=== PATIENT | male | born 1960 | race Caucasian/White ===

== ENCOUNTER → 2018-12-14 | Outpatient (CLI) | payer BC ==
[2016-02-27 07:35] VITALS: BP 135/50
[~2018-12-14] MED LIST: ACET500T68 PO; CONTRAST GIVEN. MC PRN; FENO134C PO; IOHEXOL 350 MG/ML 100 ML VIAL. IV ONE; IOHEXOL 350 MG/ML 100 ML VIAL. ONE; LOSA1TAB22 PO; METO-239 PO; OMEG300C PO; POTA10TA12 PO; SIMV40TA3 PO; TADA5TAB PO; TAMS0.4C2 PO; UBIQ75CA PO; WARF7.5T45 PO
--- NOTE | 2018-12-14 09:42 | RAD ---
PQRS Compliance Statement: One or more of the following individualized dose reduction techniques were utilized for this examination: 1. Automated exposure control 2. Adjustment of the mA and/or kV according to patient size 3. Use of iterative reconstruction technique CT ANGIO ABD ILEO/FEMOR RUNOFF Clinical Indication: Peripheral tear of disease, bilateral ulceration of the ankles. Comparison: None. TECHNIQUE: Helical CT imaging of the abdomen and pelvis with bilateral lower extremity runoff to the feet is performed after 95 cc of Omnipaque 350 IV contrast. 3-D MIP and volume rendering reconstructions of arteries. Findings: At the mid and distal thigh contrast opacification is suboptimal limiting evaluation. Contrast opacification of calf arteries is nondiagnostic. The abdominal aorta is normal caliber. The celiac artery, SMA, right and left renal arteries, and KIM are patent. The right common and external iliac arteries are patent. No atherosclerotic disease. Mild atherosclerotic calcification of the common femoral artery. The profunda artery is patent. No significant stenosis of the superficial femoral artery. Popliteal artery is patent. Minimal atherosclerotic calcification at the left common iliac artery bifurcation. No significant stenosis of left common or external iliac arteries. Minimal atherosclerotic calcification of the common femoral artery. The profunda artery is patent. No significant stenosis of the superficial femoral artery. Popliteal artery is patent. Mild atherosclerotic calcification of the tibioperoneal trunk. There is severe subcutaneous edema and skin thickening of the calves. Lung bases essentially clear. Cardiac size normal. There is fatty infiltration of the liver. The gallbladder, spleen, pancreas, and adrenal glands are normal. There is infrarenal IVC filter. There is no hydronephrosis. Kidneys enhance symmetrically. There is a 2.8 cm exophytic lesion at the lower pole the left kidney that attenuation is not definitely a cyst. Stomach unremarkable. No dilated small bowel. The appendix is normal. Scattered stool in the colon. No colon wall thickening. Subcentimeter retroperitoneal lymph nodes. No adenopathy. No abdominal or pelvic free fluid. The urinary bladder is not well distended, limiting evaluation. The prostate size is upper limits of normal. No pelvic free fluid. Vasectomy clips. There are enlarged bilateral inguinal lymph nodes that may be reactive. Degenerative endplate spurring of the lumbar spine. IMPRESSION: 1. Runoff demonstrates no significant stenosis to the level of the popliteal arteries. Contrast opacification of calf arteries is nondiagnostic. 2. There is severe subcutaneous edema and skin thickening of the calves. 3. There are enlarged bilateral inguinal lymph nodes that may be reactive. 4. Fatty infiltration of the liver. 5. Exophytic round lesion lower pole of left kidney by attenuation is not definitely a cyst. Recommend outpatient renal ultrasound. Electronically signed by: Anant Thakkar MD (12/14/2018 9:40 AM) [id number]
== END | disposition home or self-care (01) ==
LOC: CT 09:40
PROVIDERS: ATTEND Surgery Vascular Surgery
DX: I70.233 Atherosclerosis of native arteries of right leg with ulceration of ankle (principal); I70.243 Atherosclerosis of native arteries of left leg with ulceration of ankle; I70.8 Atherosclerosis of other arteries; K76.0 Fatty (change of) liver, not elsewhere classified; N28.9 Disorder of kidney and ureter, unspecified; R59.0 Localized enlarged lymph nodes
CPT/HCPCS: 75635; Q9967

== ENCOUNTER 2019-10-14 08:41 | Emergency (ER) | payer BC ==
[~2019-10-14] VITALS: Ht 180.3 cm; Wt 161.8 kg
[~2019-10-14 08:41] MED LIST changes: -CONTRAST GIVEN. MC PRN; -IOHEXOL 350 MG/ML 100 ML VIAL. IV ONE; -IOHEXOL 350 MG/ML 100 ML VIAL. ONE; +SIMV40TA18 PO; -SIMV40TA3 PO
[2019-10-14 08:55] VITALS: BP 165/79
--- NOTE | 2019-10-14 09:42 | PHYS DOC ---
Past Medical History Past Medical History: High Cholesterol, Hypertension Additional Past Medical Histor: PE, BPH Additional Past Surgical Histo: IVC FILTER Smoking Status: Current Every Day Smoker Alcohol Use: Rarely General Adult EDM: Chief Complaint: HAND PROBLEM HPI: HPI: Patient is a 59 year old male who presents to ER today for evaluation of right wrist pain and swelling for about 3 days. Patient said he had this problem before, every time he rested and took ibuprofen, he got better but whenever he started using the right hand again he will have pain and swelling return to right wrist. Patient denies any injury, patient denies any history of gout. Patient denies any fever. Review of Systems: Review of Systems: Constitutional: Denies fever or chills. [] Eyes: Denies change in visual acuity. [] HENT: Denies nasal congestion or sore throat. [] Respiratory: Denies cough or shortness of breath. [] Cardiovascular: Denies chest pain or edema. [] GI: Denies abdominal pain, nausea, vomiting, bloody stools or diarrhea. [] : Denies dysuria. [] Musculoskeletal: Positive for right wrist pain and swelling Integument: Denies rash. [] Neurologic: Denies headache, focal weakness or sensory changes. [] Endocrine: Denies polyuria or polydipsia. [] Lymphatic: Denies swollen glands. [] Psychiatric: Denies depression or anxiety. [] Heart Score: Risk Factors: Risk Factors: DM, Current or recent (<one month) smoker, HTN, HLP, family history of CAD, obesity. Risk Scores: Score 0 - 3: 2.5% MACE over next 6 weeks - Discharge Home Score 4 - 6: 20.3% MACE over next 6 weeks - Admit for Clinical Observation Score 7 - 10: 72.7% MACE over next 6 weeks - Early Invasive Strategies Allergies: Allergies: Allergies Coded Allergies Type Severity Reaction Last Updated Verified azithromycin Allergy Unknown UNK 09/12/19 Yes codeine Allergy Unknown UNK 09/12/19 Yes Physical Exam: PE: Constitutional: Well developed, well nourished, no acute distress, non-toxic appearance. [] HENT: Normocephalic, atraumatic, bilateral external ears normal, oropharynx moist, no oral exudates, nose normal. [] Eyes: PERRLA, EOMI, conjunctiva normal, no discharge. [] Neck: Normal range of motion, no tenderness, supple, no stridor. [] Cardiovascular:Heart rate regular rhythm, no murmur [] Lungs & Thorax: Bilateral breath sounds clear to auscultation [] Abdomen: Bowel sounds normal, soft, no tenderness, no masses, no pulsatile masses. [] Skin: Warm, dry, no erythema, no rash. [] Back: No tenderness, no CVA tenderness. [] Extremities: The right wrist is swollen and tender to palpation, warm to touch, NO OPEN WOUND. Patient can open and close his right wrist only with pain. Neurologic: Alert and oriented X 3, normal motor function, normal sensory function, no focal deficits noted. [] Psychologic: Affect normal, judgement normal, mood normal. [] Current Patient Data: Vital Signs: Vital Signs Date Time Temp Pulse Resp B/P (MAP) Pulse Ox O2 Delivery O2 Flow Rate FiO2 10/14/19 08:55 98.1 74 20 165/79 (107) 97 Room Air 98.1 EKG: EKG: [] Radiology/Procedures: Radiology/Procedures: [] Course & Med Decision Making: Course & Med Decision Making Pertinent Labs and Imaging studies reviewed. (See chart for details) [] Dragon Disclaimer: Dragon Disclaimer: This electronic medical record was generated, in whole or in part, using a voice recognition dictation system. Departure Departure Impression: Primary Impression: Acute reactive arthritis Disposition: 01 HOME, SELF-CARE Condition: STABLE Referrals: BESSIE WALTERS MD (PCP) FOLLOW UP WITH YOUR DOCTOR NEXT WEEK FOR REEVALUATION Patient Instructions: Arthritis, Reactive Scripts Naproxen Sodium (ANAPROX DS) 550 Mg Tablet 1 TAB PO BID PRN for PAIN for 10 Days, #20 TAB 0 Refills Prov: DAVID ANTONIO DO 10/14/19 Prednisone (PREDNISONE ) 10 Mg Tablet 3 TAB PO DAILY for 7 Days, #21 TAB 0 Refills Prov: DAVID ANTONIO DO 10/14/19 DAVID ANTONIO DO Oct 14, 2019 09:42
[2019-10-14] MEDS ORDERED: KETOROLAC 60 MG/2 ML VIAL. IM ONE (09:45)
[2019-10-14] MEDS ORDERED: predniSONE 20 MG TABLET PO ONE (09:45)
--- NOTE | 2019-10-14 09:58 | RAD ---
RIGHT WRIST, 3 VIEWS Indication: Reason: right wrist pain and swelling for two days / Spl. Instructions: / History: Findings: There is no acute fracture or dislocation. There is TFCC chondrocalcinosis. No bony erosion is identified. The bony articulations are normal. The mineralization is normal. There is moderate dorsal soft tissue swelling overlying the carpals and metacarpals. No subcutaneous air is seen. No radiopaque foreign body is identified. IMPRESSION: 1. There is moderate dorsal soft tissue swelling of the hand. 2. No acute bone abnormality is seen. 3. Chondrocalcinosis of the TFCC. Electronically signed by: Anant Thakkar MD (10/14/2019 9:55 AM) [facility]
[2019-10-14] MEDS ORDERED: NAPR-682 PO (11:31)
[2019-10-14] MEDS ORDERED: PRED-220 PO (11:31)
== END 2019-10-14 11:43 | disposition home or self-care (01) ==
LOC: ER 08:41
DX: M02.331 Reiter's disease, right wrist (principal); R60.0 Localized edema; E78.00 Pure hypercholesterolemia, unspecified; I10 Essential (primary) hypertension; F17.200 Nicotine dependence, unspecified, uncomplicated; Z98.890 Other specified postprocedural states; Z88.1 Allergy status to other antibiotic agents; Z88.5 Allergy status to narcotic agent
CPT/HCPCS: 73110; 96372; 99283; J1885; J7512

== ENCOUNTER → 2019-10-26 | Outpatient (CLI) | payer BC ==
[2019-10-14 08:55] VITALS: BP 165/79
[~2019-10-26] MED LIST changes: +NAPR-682 PO; +PRED-220 PO
== END | disposition home or self-care (01) ==
LOC: LAB 15:48
PROVIDERS: ATTEND Internal Medicine Gastroenterology
DX: Z11.59 Encounter for screening for other viral diseases (principal)
CPT/HCPCS: 36415; U0003

== ENCOUNTER → 2019-11-01 | Day surgery (SDC) | payer BC ==
[~2019-11-01] MED LIST changes: +IV RINGERS,LACTATED 1000ML 1,000 ML IV SCH; +PROPOFOL 10 MG/ML (20ML) VIAL. IV ONE
[2019-11-01 07:50] VITALS: BP 127/73
== END ==
LOC: ENDOS 06:03
PROVIDERS: ATTEND Internal Medicine Gastroenterology
DX: Z12.11 Encounter for screening for malignant neoplasm of colon (principal); K64.0 First degree hemorrhoids; K63.89 Other specified diseases of intestine; K21.9 Gastro-esophageal reflux disease without esophagitis; I10 Essential (primary) hypertension; J45.909 Unspecified asthma, uncomplicated; G43.909 Migraine, unspecified, not intractable, without status migrainosus; K44.9 Diaphragmatic hernia without obstruction or gangrene; F15.90 Other stimulant use, unspecified, uncomplicated; Z86.010 Personal history of colon polyps; Z88.5 Allergy status to narcotic agent; Z91.040 Latex allergy status; Z87.891 Personal history of nicotine dependence; Z72.89 Other problems related to lifestyle
CPT/HCPCS: 45378; J2704